=== PATIENT | female | born 1955 | race African-American/Black ===

== ENCOUNTER 2017-04-28 10:09 | Emergency (ER) | payer MEDICAID ==
[~2017-04-28] VITALS: Ht 165.1 cm; Wt 145.8 kg
[2017-04-28] MEDS ORDERED: OXYC10TA49 PO (10:26)
[2017-04-28] MEDS ORDERED: SULF500T47 PO (10:26)
[2017-04-28] MEDS ORDERED: NORT25CA PO (10:26)
--- NOTE | 2017-04-28 10:28 | NUR ---
PATIENT WAS SEEN BY MD FOR C/O HIP PAIN. NORCO GIVEN ORDERED. AWAITING XRAY... SON AT BEDSIDE.
[2017-04-28] MEDS ORDERED: HYDROCODONE/APAP 5-325MG TABLET PO ONE (10:30)
[2017-04-28] MEDS ORDERED: HYDROCODONE/APAP 5-325MG TABLET ONE (10:42)
--- NOTE | 2017-04-28 11:23 | NUR ---
PATIENT STATES PAIN HAS DIMINISHED. DR TINSLEY AT BEDSIDE SPEAKING TO PATIENT ABOUT TEST RESULTS AND PLAN.
[2017-04-28] MEDS ORDERED: ALPRAZOLAM 0.25 MG TABLET PO ONE (11:30)
[2017-04-28] MEDS ORDERED: ALPRAZOLAM 0.25 MG TABLET ONE (11:47)
--- NOTE | 2017-04-28 12:00 | NUR ---
DC, RX INCLUDING MED PRECAUTIONS, GIVEN AND EXPLAINED TO PATIENT AND SON WHO STATE THEY UNDERSTAND ALL INSTRUCTIONS.
== END 2017-04-28 12:02 | disposition home or self-care (01) ==
LOC: ER 10:09
DX: M16.11 Unilateral primary osteoarthritis, right hip (principal)
CPT/HCPCS: 73502; 99284; A4663

== ENCOUNTER 2017-05-07 17:50 | Emergency (ER) | payer MEDICAID ==
[~2017-05-07] VITALS: Ht 160 cm; Wt 145.1 kg
[~2017-05-07 17:50] MED LIST: NORT25CA PO; OXYC10TA49 PO; SULF500T47 PO
[2017-05-07] MEDS ORDERED: ONDANSETRON 4 MG/2 ML VIAL IV ONE (18:15)
[2017-05-07] MEDS ORDERED: MORPHINE SULFATE 4 MG/1 ML DISP.SYRIN IV ONE (18:15)
--- NOTE | 2017-05-07 18:17 | NUR ---
PT IS IN ROOM #1A. DR BENÍTEZ EVALUATED THE PT.
[2017-05-07 18:36] LABS: BASOPHILS % (AUTO) 0.7 % (0.0-2.0); EOSINOPHILS # (AUTO) 0.2 K/uL (0.0-0.7); EOSINOPHILS % (AUTO) 2.9 % (0.0-7.0); HEMATOCRIT 37.3 % (37-47); HEMOGLOBIN 11.9 G/DL (12.0-16.0); LYMPHOCYTES # (AUTO) 2.1 K/UL (0.8-4.8); LYMPHOCYTES % (AUTO) 31.7 % (20.5-51.5); MEAN CORPUSCULAR HEMOGLOBIN 29.7 UUG (27.0-31.0); MEAN CORPUSCULAR HGB CONC 32 g/dL (32.0-37.0); MEAN CORPUSCULAR VOLUME 92.9 FL (81.0-99.0); MONOCYTES # (AUTO) 0.6 K/UL (0.1-1.30); MONOCYTES % (AUTO) 9.4 % (0.0-11.0); NEUTROPHILS # (AUTO) 3.8 K/UL (1.8-8.9); NEUTROPHILS % (AUTO) 55.3 % (38.5-71.5); PLATELET COUNT (AUTO) 284 K/UL (150-450); RED BLOOD CELL COUNT(AUTO) 4.01 MIL/UL (4.2-5.4); WHITE BLOOD COUNT (AUTO) 6.7 K/UL (4.0-11.2)
[2017-05-07] MEDS ORDERED: ONDANSETRON 4 MG/2 ML VIAL ONE (18:36)
[2017-05-07] MEDS ORDERED: MORPHINE SULFATE 2 MG/1 ML DISP.SYRIN ONE (18:36)
[2017-05-07 18:42] LABS: CREATININE 1.1 mg/dL (0.6-1.3); POTASSIUM 3.7 mmol/L (3.5-5.1)
[2017-05-07 18:48] LABS: BILIRUBIN,DIRECT 0.1 mg/dL (0.0-0.2); BILIRUBIN,TOTAL 0.3 mg/dL (0.2-1.0); TOTAL PROTEIN, SERUM 7.9 g/dL (6.4-8.2)
--- NOTE | 2017-05-07 19:04 | NUR ---
REPORT GIVEN TO UTILITY LOCATE TECHNICIAN RN.
--- NOTE | 2017-05-07 19:19 | NUR ---
ASSUMED CARE OF PATIENT. NO ACUTE DISTRESS NOTED. RESPIRATIONS EVEN AND UNLABORED. NO SOB OR CONGESTION NOTED. LUNG SOUNDS CLEAR. NO CARDIOVASCULAR DISTRESS NOTED. ALL PULSES PRESENT AND PALPABLE. SKIN IS WARM AND DRY TO THE TOUCH.
--- NOTE | 2017-05-07 19:23 | NUR ---
BRIDGET PEREA AT BEDSIDE FOR PATIENT UPDATE.
--- NOTE | 2017-05-07 20:46 | NUR ---
ER MD spoke with patients PCP, Dr Donald. Per per PCP, the patient should be d/c home and follow up with the PCP in the morning. The patient refuses d/c at this time. ER is aware. ER MD to reevaluate patient condition. Awaiting further instruction from BRIDGET PEREA
--- NOTE | 2017-05-07 21:07 | NUR ---
supervisor intelligence analyst Kirt contacted per ER MD instruction, for assistance with patient placement/dischrage concerns.
--- NOTE | 2017-05-07 21:19 | NUR ---
Patient provided with dischrage instructions, education provided to patient on aftercare. Patient refused to sign discharge paperwork at this time. supervisor pleating at bedside due to patient refusal to leave facility at this time. patient is agressive, noncomplaint with MD instruction/nurse instruction. Patient states " Call the police,call the news, I am not going anywhere, I am going to lay here"
--- NOTE | 2017-05-07 21:39 | NUR ---
Patient requested locomotive supervisor to speak with her daughter, Saskia. Kirt, in house cra on phone with Saskia now to provide detailed explanation on patient dischrage terms/instructions.
--- NOTE | 2017-05-07 23:27 | NUR ---
Per malthouse laborer Kirt, patients primary MD Dr Donald will accept the patient for direct admission to [facility]. Awaiting call back from Dr Donald for MD to report
--- NOTE | 2017-05-07 23:37 | NUR ---
ER MD spoke to Dr Donald, per Dr Donald the patient can not be transfered to [place]. Clarrification of previously held conversation with Kirt, boiler house inspector yields that previous conversation with Dr Donald was actually held by the patients daughter and not by boiler house inspector. The patient was not approved for [place] transport /admission by Dr Donald. At this time, awaiting further intruction from ER .
--- NOTE | 2017-05-08 00:15 | NUR ---
Patient discharged to home in stable conditon. Written and verbal after care instructions given. Patient verbalizes understanding of instructions. patient was ambulated from ER with stable gait. Patient was using [facility]. Patient states she feels good and will go home. She will follow up with her primary MD in the morning.
[2017-05-08 00:16] VITALS: BP 130/74
== END 2017-05-08 00:17 | disposition home or self-care (01) ==
LOC: ER 17:50
DX: M16.11 Unilateral primary osteoarthritis, right hip (principal); E66.01 Morbid (severe) obesity due to excess calories; M48.02 Spinal stenosis, cervical region; W18.30XA Fall on same level, unspecified, initial encounter; Y92.89 Other specified places as the place of occurrence of the external cause; Y93.89 Activity, other specified; Y99.8 Other external cause status
CPT/HCPCS: 36415; 70030-TC; 71010; 72125; 73502; 85025; 86850; 86900; 86901; 93005; A4663; J2270; J2405

== ENCOUNTER 2018-05-28 13:57 | Inpatient (IN) | END 2018-05-29 15:50 | disposition home or self-care (01) | DRG 554 | DX: M19.012 Primary osteoarthritis, left shoulder (principal); Z68.43 Body mass index [BMI] 50.0-59.9, adult; K51.90 Ulcerative colitis, unspecified, without complications; N17.9 Acute kidney failure, unspecified; M19.011 Primary osteoarthritis, right shoulder; N19 Unspecified kidney failure; M47.9 Spondylosis, unspecified; E66.01 Morbid (severe) obesity due to excess calories; G89.4 Chronic pain syndrome; K59.00 Constipation, unspecified; M16.11 Unilateral primary osteoarthritis, right hip; D64.9 Anemia, unspecified; N18.9 Chronic kidney disease, unspecified ==